=== PATIENT | male | born 1965 | race Caucasian/White ===

== ENCOUNTER → 2018-03-24 13:19 | Outpatient (CLI) | payer OTHER, SELFPAY ==
[2018-03-24 14:09] LABS: Add Manual Diff / Slide Review NO; Basophils Percent Auto 0.3 % (0-2); Eosinophils Percent Auto 2.1 % (2-4); Hematocrit 45.5 % (41-53); Lymphocytes Percent Auto 48.5 % (25-40); Mean Corpuscular HGB Conc 35.2 % (30-36); Mean Corpuscular Hemoglobin 31.6 PG (26-34); Mean Corpuscular Volume 89.8 fL (80-100); Monocytes Percent Auto 5.7 % (3-14); Neutrophils Absolute Auto 1700 /uL (3000-5900); Neutrophils Percent Auto 43.4 % (50-75); Platelet Count 157 X10^3/uL (150-400); Red Blood Cell Count 5.07 X10^6/uL (4.5-5.9); Red Cell Distribution Width 12.5 % (11.6-14.8)
[2018-03-24 14:28] LABS: Alanine Aminotransferase 73 IU/L (21-72); Albumin 4.6 g/dL (3.5-5.0); Albumin Globulin Ratio 1.6 (1.0-2.8); Alkaline Phosphatase 43 U/L (38-126); Aspartate Aminotransferase 28 IU/L (17-59); BUN Creatinine Ratio 28.9 (6-22); Bilirubin Total 0.9 mg/dL (0.2-1.3); Blood Urea Nitrogen 26 mg/dL (9-20); Calcium 9.5 mg/dL (8.4-10.2); Carbon Dioxide 26 mmol/L (22-32); Chloride 102 mmol/L (98-107); Cholesterol 215 mg/dL (140-199); Estimated Glomerular Filt Rate > 60.0 mL/min (>60); Globulin 2.8 g/dL (1.7-4.1); Glucose 87 mg/dL (70-100); HDL Cholesterol 46 mg/dL (40-60); HEMOLYSIS < 15 (0-50); LDL Cholesterol Calculated 148 mg/dL (<100); Potassium 3.8 mmol/L (3.4-5.1); Sodium 140 mmol/L (137-145); Total Protein 7.4 g/dL (6.3-8.2); Triglycerides 107 mg/dL (35-150)
[2018-03-24 14:55] LABS: Prostate Specific Antigen Scrn 0.469 ng/mL (0.1-4.0)
[2018-03-24 14:56] LABS: TSH w/ Reflex to FT4 1.76 uIU/mL (0.47-4.68)
== END ==
PROVIDERS: PCP Family Medicine; Visit Provider Family Medicine
DX: Z00.00 Encounter for general adult medical examination without abnormal findings (principal); Z12.5 Encounter for screening for malignant neoplasm of prostate
CPT/HCPCS: 36415; 80053; 80061; 84443; 85025; G0103

== ENCOUNTER → 2019-09-21 06:51 | Outpatient (CLI) | payer OTHER, SELFPAY ==
[2019-09-21 08:27] LABS: Add Manual Diff / Slide Review NO; Basophils Absolute Auto 0 /uL (0-100); Basophils Percent Auto 0.4 % (0-2); Eosinophils Absolute Auto 100 /uL (0-450); Eosinophils Percent Auto 1.7 % (2-4); Hematocrit 48.4 % (41-53); Hemoglobin 16.6 g/dL (13.5-17.5); Lymphocytes Absolute Auto 1600 /uL (1100-4500); Lymphocytes Percent Auto 32.4 % (25-40); Mean Corpuscular HGB Conc 34.4 % (30-36); Mean Corpuscular Hemoglobin 31.1 PG (26-34); Mean Corpuscular Volume 90.3 fL (80-100); Monocytes Absolute Auto 400 /uL (0-900); Neutrophils Absolute Auto 2900 /uL (1500-7000); Neutrophils Percent Auto 58.5 % (50-75); Platelet Count 170 X10^3/uL (150-400); Red Blood Cell Count 5.35 X10^6/uL (4.5-5.9); Red Cell Distribution Width 12.3 % (11.6-14.8)
[2019-09-21 09:13] LABS: Alanine Aminotransferase 63 IU/L (<50); Albumin 4.6 g/dL (3.5-5.0); Albumin Globulin Ratio 1.5 (1.0-2.8); Alkaline Phosphatase 49 U/L (38-126); Aspartate Aminotransferase 27 IU/L (17-59); Bilirubin Total 0.8 mg/dL (0.2-1.3); Blood Urea Nitrogen 31 mg/dL (9-20); Calcium 9.7 mg/dL (8.4-10.2); Carbon Dioxide 26 mmol/L (22-32); Chloride 107 mmol/L (98-107); Cholesterol 224 mg/dL (140-199); Estimated Glomerular Filt Rate > 60.0 mL/min (>60); Globulin 3.1 g/dL (1.7-4.1); Glucose 111 mg/dL (70-100); HDL Cholesterol 34 mg/dL (40-60); HEMOLYSIS < 15 (0-50); LDL Cholesterol Calculated 170 mg/dL (<100); Potassium 3.6 mmol/L (3.4-5.1); Sodium 142 mmol/L (137-145); Total Protein 7.7 g/dL (6.3-8.2); Triglycerides 102 mg/dL (35-150)
[2019-09-21 09:43] LABS: Prostate Specific Antigen Scrn 0.499 ng/mL (0.1-4.0)
[2019-09-21 09:45] LABS: TSH w/ Reflex to FT4 2.52 uIU/mL (0.47-4.68)
== END ==
PROVIDERS: PCP Family Medicine; Visit Provider Family Medicine
DX: Z00.00 Encounter for general adult medical examination without abnormal findings (principal); Z12.5 Encounter for screening for malignant neoplasm of prostate; Z13.220 Encounter for screening for lipoid disorders; Z13.29 Encounter for screening for other suspected endocrine disorder; Z13.6 Encounter for screening for cardiovascular disorders; N52.9 Male erectile dysfunction, unspecified; R53.83 Other fatigue
CPT/HCPCS: 36415; 80053; 80061; 84403; 84443; 85025; G0103

== ENCOUNTER → 2020-12-26 08:13 | Outpatient (CLI) | payer OTHER, SELFPAY ==
[2020-12-26] MEDS: COVID-19 VACC, Ad26(JANSSEN)/PF 0.5 ML IM (08:25)
== END ==
PROVIDERS: PCP Family Medicine; Visit Provider Internal Medicine
DX: Z23 Encounter for immunization (principal)
CPT/HCPCS: 0031A; 91303

== ENCOUNTER → 2021-08-20 07:02 | Outpatient (CLI) | payer OTHER, SELFPAY ==
[2021-08-20 08:50] LABS: Add Manual Diff / Slide Review NO; Basophils Absolute Auto 0 /uL (0-100); Basophils Percent Auto 0.6 % (0-2); Eosinophils Absolute Auto 100 /uL (0-450); Hemoglobin 15.9 g/dL (13.5-17.5); Lymphocytes Absolute Auto 1700 /uL (1100-4500); Lymphocytes Percent Auto 43.1 % (25-40); Mean Corpuscular HGB Conc 34.6 % (30-36); Mean Corpuscular Hemoglobin 31.1 PG (26-34); Mean Corpuscular Volume 90.1 fL (80-100); Monocytes Absolute Auto 300 /uL (0-900); Monocytes Percent Auto 6.9 % (3-14); Neutrophils Absolute Auto 1800 /uL (1500-7000); Neutrophils Percent Auto 47.4 % (50-75); Platelet Count 141 X10^3/uL (150-400); Red Cell Distribution Width 12.3 % (11.6-14.8); White Blood Cell Count 3.9 X10^3/uL (4.5-11.0)
[2021-08-20 09:26] LABS: HEMOLYSIS < 15 (0-50); Potassium 3.7 mmol/L (3.4-5.1)
[2021-08-20 09:27] LABS: Alanine Aminotransferase 107 IU/L (<50); Albumin 4.4 g/dL (3.5-5.0); Albumin Globulin Ratio 1.5 (1.0-2.8); Alkaline Phosphatase 44 U/L (38-126); Aspartate Aminotransferase 39 IU/L (17-59); BUN Creatinine Ratio 27.1 (6-22); Bilirubin Total 0.5 mg/dL (0.2-1.3); Blood Urea Nitrogen 26 mg/dL (9-20); Calcium 9.2 mg/dL (8.4-10.2); Carbon Dioxide 28 mmol/L (22-32); Chloride 104 mmol/L (98-107); Cholesterol 212 mg/dL (140-199); Estimated Glomerular Filt Rate > 60.0 mL/min (>60); Globulin 2.9 g/dL (1.7-4.1); Glucose 100 mg/dL (70-100); HDL Cholesterol 35 mg/dL (40-60); LDL Cholesterol Calculated 155 mg/dL (<100); Sodium 141 mmol/L (137-145); Total Protein 7.3 g/dL (6.3-8.2); Triglycerides 108 mg/dL (35-150)
[2021-08-20 09:52] LABS: Prostate Specific Antigen Scrn 0.559 ng/mL (0.1-4.0)
== END ==
PROVIDERS: PCP Family Medicine; Referring Provider Family Medicine; Visit Provider Family Medicine
DX: Z00.00 Encounter for general adult medical examination without abnormal findings (principal); E78.5 Hyperlipidemia, unspecified; Z12.5 Encounter for screening for malignant neoplasm of prostate
CPT/HCPCS: 36415; 80053; 80061; 85025; G0103

== ENCOUNTER → 2021-11-21 16:40 | Outpatient (CLI) | payer OTHER, SELFPAY ==
--- NOTE | 2021-11-21 | DI.RAD.S_ITS ---
PROCEDURE: XR CHEST 2V INDICATIONS: COVID/COUGHING TECHNIQUE: 2 views of the chest were acquired. COMPARISON: [facility], , CHEST 1 VIEW, 11/13/2015, 13:38. FINDINGS: Surgical changes and devices: None. Lungs and pleura: No consolidation, pleural effusions or pneumothorax. Mediastinum: Mediastinal contours are normal. Heart size is normal. Bones and chest wall: No suspicious bony abnormalities. Soft tissues appear unremarkable. IMPRESSION: No acute cardiopulmonary abnormality. Dictated by: Mehrdad Bailey M.D. on 11/21/2021 at 16:54 Approved by: Mehrdad Bailey M.D. on 11/21/2021 at 16:55
== END ==
PROVIDERS: PCP Family Medicine; Referring Provider Family Medicine; Visit Provider Family Medicine
DX: U07.1 COVID-19 (principal)
CPT/HCPCS: 71046

== ENCOUNTER 2022-05-12 07:56 | Emergency (ER) | payer OTHER, SELFPAY ==
[2022-05-12 08:01] VITALS: BP 125/79; PULSE 73; RESP 16; TEMP 36.4; O2SAT 96; BMI 33.0
[2022-05-12] MEDS: methylPREDNISolone 125 MG/2 ML VIAL IV (08:12)
[2022-05-12] MEDS: FAMOTIDINE 20 MG/2 ML VIAL IV (08:12)
--- NOTE | 2022-05-12 08:22 | ED_ITS ---
HPI - Allergic Reaction General Chief complaint: Allergic Reaction Stated complaint: stung by bee/reaction Time Seen by Provider: 05/12/22 08:01 History of Present Illness HPI narrative: Patient is a 56-year-old male history of hypertension with bee sting. 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 He got stung in the back the head approximately 30 minutes ago and broke out into hives. He has lip tingling an all over itching and hives he took 50 mg of Benadryl prior to arrival. He denies any difficulty swallowing or breathing. He says tongue may feel slightly enlarged. He speaking without any difficulty. Related Data Previous Rx's Medication Instructions Recorded epinephrine 0.3 mg/0.3 mL 0.3 mg (0.3 mL) IM SEE 09/04/21 injection, auto-injector (EpiPen INSTRUCTIONS ##1 2-Eric) sildenafil 25 mg tablet 25 mg PO DAILY PRN sexual activity 09/23/21 #30 tabs benzonatate 200 mg capsule 200 mg PO TID PRN cough #30 caps 11/22/21 hydrochlorothiazide 25 mg tablet 25 mg PO DAILY #90 tabs 01/20/22 olmesartan 20 mg tablet 20 mg PO DAILY #90 tabs 01/20/22 epinephrine 0.3 mg/0.3 mL 0.3 mg (0.3 mL) IM Q5-15M PRN 05/12/22 injection, auto-injector anaphylaxis #2 ea Allergies Allergy/AdvReac Type Severity Reaction Status Date / Time BEE,HONEY Allergy Severe Anaphylaxis Uncoded 05/12/22 08:06 Review of Systems Review of Systems Narrative: GENERAL: Denies chills, fatigue, malaise, fever, sweats, travel HEENT: Denies sinus pain, ear pain, sore throat, difficulty swallowing, neck pain RESPIRATORY: See HPI CARDIOVASCULAR: Denies chest pain, palpitations, orthopnea, edema GASTROINTESTINAL: Denies nausea, vomiting, abdominal pain, diarrhea, constipation, melena. : Denies dysuria, frequency, incontinence, hematuria, urinary retention, flank pain. MUSCULOSKELETAL: Denies weakness, joint pain, or bony pain SKIN: N hives, see HPI NEUROLOGIC: Denies weakness, dizziness, headache, numbness, change in speech, confusion PSYCHIATRIC: No concerning psychosocial issues. 12 point review of systems is negative except for those stated above and HPI Patient History Medical History (Updated 05/12/22 @ 09:24 by Patricia Sanchez DO) Hayfever Herpes Migraines Sleep apnea Surgical History Status post tonsillectomy and adenoidectomy Family History Father Heart disease Grandfather No problems noted. Grandmother No problems noted. Mother No problems noted. Sister No problems noted. Sister No problems noted. Social History marital status: Smoking Status: Never smoker alcohol intake: current (1-3 A WEEK ) substance use type: does not use Smoking Status: Never smoker alcohol intake frequency: 3 or more drinks per day Substance Use Type: does not use Exam Initial Vital Signs Initial Vital Signs: Vital Signs Temperature 97.6 F 05/12/22 08:01 Pulse Rate 73 05/12/22 08:01 Respiratory Rate 16 05/12/22 08:01 Blood Pressure 125/79 05/12/22 08:01 Pulse Oximetry 96 05/12/22 08:01 Oxygen Delivery Method 05/12/22 08:01 GENERAL: Alert pleasant 56-year-old male HEENT: Head atraumatic,EOMI, pupils reactive, face symmetric, no significant edema noted of tongue lips no hoarseness of voice managing secretions CARDIOVASCULAR: Regular rate and rhythm without murmurs, rubs or gallops. RESPIRATORY: Breath sounds equal bilaterally, no wheezes rales or rhonchi. ABDOMEN: Soft, nontender. Normoactive bowel sounds all 4 quadrants. No guardi ng or rebound. EXTREMITIES: Normal range of motion, no clubbing or edema. Neurovascularly intact NEUROLOGICAL: Alert and oriented x4. SKIN: Diffuse hives all over specifically more on abdomen Course Orders Ordered: Discontinued Medications Famotidine (Famotidine 20 Mg/2 Ml Vial) 20 mg IV NOW CASA Last Admin: 05/12/22 08:12 Dose: 20 mg Documented By: JAMIE Methylprednisolone (Methylprednisolone 125 Mg/2 Ml Vial) 125 mg IV NOW ONE Stop: 05/12/22 08:07 Last Admin: 05/12/22 08:12 Dose: 125 mg Documented By: [facility] Vital Signs Vital signs: Vital Signs - 8 hr 05/12/22 08:01 05/12/22 08:27 05/12/22 08:30 Temperature 97.6 F Pulse Rate 73 64 Respiratory Rate 16 Blood Pressure 125/79 129/67 Pulse Oximetry 96 95 Oxygen Delivery Method Room Air 05/12/22 08:30 05/12/22 09:00 05/12/22 09:00 Temperature Pulse Rate 65 63 Respiratory Rate Blood Pressure 127/79 Pulse Oximetry 97 95 Oxygen Delivery Method 05/12/22 09:30 05/12/22 09:30 Temperature Pulse Rate 69 Respiratory Rate Blood Pressure 147/89 H Pulse Oximetry 97 Oxygen Delivery Method MDM - Allergic Reaction MDM Narrative Medical decision making narrative: Patient has sign of allergic reaction but not anaphylaxis at this time. He took Benadryl previously. Will give him Solu-Medrol Pepcid and monitor. If worsen then epinephrine. Patient's symptoms completely resolved within an hour and. No difficulty breathing no need for epinephrine at this time. Does not have anaphylaxis does have severe hives. Discharge Plan Departure Patient Disposition: Home Clinical Impression: Allergic reaction Instructions: DI for Anaphylaxis, DI for Hives Activity Restrictions/Additional Instructions: *You have been diagnosed with allergic reaction to bees *What to do: At this time continue to monitor Thursday or feeling well. Continue to Carrier epinephrine pen with you use it if you should ever feel tongue or lip swelling or difficulty breathing *Continue to take medications as directed Benadryl 25-50 mg every 6 hours if needed for itching Pepcid 20 mg once daily continuing to have hives *Follow up with your primary care provider in 2-3 days or call [phone] *Return to ER if you should have increased difficulty breathing, worsening high or any new, worsening or concerning symptoms Prescriptions: New epinephrine 0.3 mg/0.3 mL auto-injector 0.3 mg IM Q5-15M PRN (Reason: anaphylaxis) Qty: 2 0RF Rx Instructions: do not exceed 3 doses per episode No Action sildenafil 25 mg tablet 25 mg PO DAILY PRN (Reason: sexual activity) Qty: 30 11RF Rx Instructions: administer 30 minutes to 4 hours before activity. Up to three tabs daily epinephrine [EpiPen 2-Eric] 0.3 mg/0.3 mL auto-injector 0.3 mg IM SEE INSTRUCTIONS Qty: 1 1RF benzonatate 200 mg capsule 200 mg PO TID PRN (Reason: cough) Qty: 30 1RF hydrochlorothiazide 25 mg tablet 25 mg PO DAILY Qty: 90 3RF olmesartan 20 mg tablet 20 mg PO DAILY Qty: 90 3RF Referrals: Henrique Mathias MD [Primary Care Provider] - Visit Report Forms: Patient Portal/API
[2022-05-12 08:27] VITALS: PULSE 64; O2SAT 95
[2022-05-12 08:30] VITALS: BP 129/67; PULSE 65; O2SAT 97
[2022-05-12 09:00] VITALS: BP 127/79; PULSE 63; O2SAT 95
[2022-05-12 09:30] VITALS: BP 147/89; PULSE 69; O2SAT 97
== END 2022-05-12 09:50 | disposition home or self-care (01) ==
PROVIDERS: Emergency Provider Emergency Medicine; PCP Family Medicine
DX: T63.441A Toxic effect of venom of bees, accidental (unintentional), initial encounter (principal)
CPT/HCPCS: 96374; 96375; 99283; 99284; J2930

== ENCOUNTER 2022-11-20 06:44 | Day surgery (SDC) | payer OTHER, SELFPAY ==
--- NOTE | 2022-11-20 | PATH_ITS ---
[facility] Accession Number: [id number] No. of containers..02 Tissue . 01 Material submitted: . PART A: colon - RIGHT COLON ULCER PART B: colon - TRANSVERSE POLYP . 01 Diagnosis: A. Right Colon, Ulcer, Biopsy: Colonic mucosa with ischemia-type changes. Please see comment. Negative for granulomas, dysplasia, and malignancy. . B. Transverse Colon, Polyp, Biopsy: Tubular adenoma, two fragments. MRV 11/26/2022 1411 Local . 01 Comment: A. The differential diagnosis includes ischemia due to trauma/prolapse, true vascular ischemia, and ischemia due to infection (i.e., enterohemorrhagic E. coli, C. difficile, etc.). . 01 Electronically signed: . Krys Maxwell MD, Pathologist NPI- [id number] . 01 Gross description: . Part A: RIGHT COLON ULCER: Received in formalin is 1 fragment(s) of walls, soft tissue measuring 0.3 x 0.2 x 0.1 cm submitted entirely in 1 cassette(s) Part B: TRANSVERSE POLYP: Received in formalin are 2 fragment(s) of walls, soft tissue measuring 0.5 x 0.2 x 0.1 cm to 0.2 x 0.2 x 0.1 cm submitted entirely in 1 cassette(s) /CPE 11/21/2022 0902 Local . 01 Pathologist provided ICD-10: D12.3 . 01 CPT . 414390, [id number] Specimen Comment: A courtesy copy of this report has been sent to [phone] Performed at: 01 [facility] [address] [place] [address] [address], [place], [place] [id number] MD Sammy Sparrow MD Phone: [phone]
[2022-11-20 07:21] VITALS: BP 127/83; PULSE 72; RESP 18; TEMP 36.2; O2SAT 95; BMI 33.0
[2022-11-20] MEDS: LACTATED RINGERS 1,000 ML 84 ML IV (07:39)
--- NOTE | 2022-11-20 07:40 | PM.HP.1 ---
History of Present Illness History of Present Illness Date Patient Seen: 11/20/22 Time Patient Seen: 07:40 Chief complaint: SCREENING COLONOSCOPY Narrative: Devonte is a 57-year-old man who is here for colonoscopy. He had 1 about 7 years ago with polyps removed. No known family history of colon cancer. Patient History Medical History (Updated 11/20/22 @ 07:40 by Vinicius Lei MD) Hayfever Herpes Migraines Sleep apnea Surgical History Status post tonsillectomy and adenoidectomy Family & Social History Family History Father Heart disease Grandfather No problems noted. Grandmother No problems noted. Mother No problems noted. Sister No problems noted. Sister No problems noted. Social History: household members spouse Tobacco & Substance use: Smoking Status Never smoker alcohol intake current alcohol intake frequency a few times a week Substance Use Type does not use Meds Home Medications and Allergies Home Medications Medication Instructions Recorded Confirmed Type olmesartan 20 mg tablet 20 mg PO DAILY #90 tabs 01/20/22 11/20/22 Rx epinephrine 0.3 mg/0.3 mL 0.3 mg (0.3 mL) IM Q5-15M PRN 05/12/22 11/20/22 Rx injection, auto-injector anaphylaxis #2 ea sildenafil 25 mg tablet 25 mg PO DAILY PRN sexual activity 06/16/22 11/20/22 Rx #30 tabs sodium sul 1.479 gram-potas ch See Rx Instructions PO PER PKG DIR 11/07/22 11/20/22 Rx 0.188 gram-magnes sul 0.225 gram #24 tabs tablet (Sutab) hydrochlorothiazide 25 mg tablet 25 mg PO 3XD 11/20/22 11/20/22 History Allergies Allergy/AdvReac Type Severity Reaction Status Date / Time bee venom protein (honey bee) Allergy Intermediate Anaphylaxis Verified 11/20/22 07:30 Exam Vital Signs (past 8 hours): - 11/20/22 07:21 11/20/22 07:21 Temperature 97.1 F L Pulse Rate 72 Respiratory Rate 18 Blood Pressure 127/83 Pulse Oximetry 95 Oxygen Delivery Method Room Air Room Air Oxygen Delivery Method Room Air Const General: healthy appearing Resp Effort & Inspection: normal respiratory effort Assessment & Plan Assessment and plan (1) History of colon polyps: Status: Acute Plan We reviewed the risks and benefits of colonoscopy for colon cancer screening and personal history of polyps and he would like to proceed. Time Spent With Patient Critical Care time: I spent a total of [] minutes of critical care time on this patient's care today; this time is exclusive of procedural time.
[2022-11-20 08:12] VITALS: BP 98/73; PULSE 72; RESP 14; TEMP 36.3; O2SAT 95
--- NOTE | 2022-11-20 08:15 | PM.OP.COLON ---
Operative Date/Time/Diagnoses Date of procedure: 11/20/22 Time of procedure: 08:15 Pre-op diagnosis: Colon cancer screening Post-op diagnosis: same Procedure & Clinicians Study performed: Colonoscopy Same procedure as scheduled: Yes Surgeon: Vinicius Lei Procedure Notes Procedure in detail: Surgeon: Vinicius Lei MD Anesthesia: Dr. Calvert Procedure: The patient was brought to the endoscopy suite, placed in left lateral decubitus position. The patient was connected to monitoring devices. A time-out was performed. Sedation was administered. Once the patient was adequately sedated, a digital rectal exam was performed and was normal. The scope was then inserted and advanced to the cecum where the appendiceal orifice was identified and photographed. The scope was then slowly withdrawn over greater than 6 minutes. The mucosa was thoroughly inspected. There was a very small shallow ulcer in the right colon and a biopsy was taken with the Jumbo forceps. There was a 5 mm polyp in the transverse colon which was removed with Jumbo forceps. The rest of the colon was normal. The scope was retroflexed in the rectum. There was a hypertrophied anal papilla. The scope was straightened and removed. The patient was awakened and brought to recovery. Scope withdrawal time: 12 minutes Sedation time: 20 minutes EBL: 2 mL Findings: Small shallow ulcer in the right colon and 5 mm polyp in the transverse colon Post-procedure Disposition: PACU
[2022-11-20 08:17] VITALS: BP 102/75; PULSE 75; RESP 16; O2SAT 95
[2022-11-20 08:22] VITALS: BP 109/71; PULSE 76; RESP 17; O2SAT 95
[2022-11-20 08:28] VITALS: BP 112/85; PULSE 67; RESP 16; O2SAT 100
--- NOTE | 2022-11-20 08:32 | SUR.PHASEI ---
0830: Pt A&Ox4, denies any distress, VSS, abd soft and ready to transfer to phase 2. Report given to MARY JO Gray with time allowed for questions. Will transfer care now.
== END 2022-11-20 08:44 | disposition home or self-care (01) ==
PROVIDERS: PCP Family Medicine; Referring Provider Surgery; Visit Provider Surgery
PROC: 0DJD8ZZ Inspection of Lower Intestinal Tract, Via Natural or Artificial Opening Endoscopic (ICD-10-PCS; CPT 45378; principal; 2022-11-20 07:45)
DX: Z12.11 Encounter for screening for malignant neoplasm of colon (principal); Z86.010 Personal history of colon polyps; K64.4 Residual hemorrhoidal skin tags; K63.3 Ulcer of intestine; D12.3 Benign neoplasm of transverse colon
CPT/HCPCS: 45380; J2704; J3010

== ENCOUNTER → 2023-06-05 12:52 | Outpatient (CLI) | payer OTHER, SELFPAY ==
[2023-06-05 13:13] LABS: Add Manual Diff / Slide Review NO; Basophils Absolute Auto 0 /uL (0-100); Basophils Percent Auto 0.4 % (0-2); Eosinophils Absolute Auto 100 /uL (0-450); Eosinophils Percent Auto 1.2 % (2-4); Hematocrit 50.1 % (41-53); Hemoglobin 17.4 g/dL (13.5-17.5); Lymphocytes Absolute Auto 1600 /uL (1100-4500); Lymphocytes Percent Auto 26.8 % (25-40); Mean Corpuscular HGB Conc 34.7 % (30-36); Mean Corpuscular Hemoglobin 31.6 PG (26-34); Mean Corpuscular Volume 90.9 fL (80-100); Monocytes Absolute Auto 300 /uL (0-900); Monocytes Percent Auto 5.6 % (3-14); Neutrophils Absolute Auto 4000 /uL (1500-7000); Platelet Count 151 X10^3/uL (150-400); Red Blood Cell Count 5.51 X10^6/uL (4.5-5.9); Red Cell Distribution Width 13.5 % (11.6-14.8); White Blood Cell Count 6.1 X10^3/uL (4.5-11.0)
[2023-06-05 13:35] LABS: Alanine Aminotransferase 36 IU/L (<50); Albumin 4.3 g/dL (3.5-5.0); Albumin Globulin Ratio 1.5 (1.0-2.8); Alkaline Phosphatase 37 U/L (38-126); Aspartate Aminotransferase 24 IU/L (17-59); Blood Urea Nitrogen 19 mg/dL (9-20); Calcium 9.3 mg/dL (8.4-10.2); Carbon Dioxide 26 mmol/L (22-32); Chloride 104 mmol/L (98-107); Cholesterol 188 mg/dL (140-199); Estimated Glomerular Filt Rate > 60 mL/min (>60); Globulin 2.8 g/dL (1.7-4.1); Glucose 88 mg/dL (70-100); HDL Cholesterol 43 mg/dL (40-60); HEMOLYSIS < 15 (0-50); LDL Cholesterol Calculated 134 mg/dL (<100); Potassium 3.8 mmol/L (3.4-5.1); Sodium 137 mmol/L (137-145); Total Protein 7.1 g/dL (6.3-8.2); Triglycerides 57 mg/dL (35-150)
[2023-06-05 13:59] LABS: TSH w/ Reflex to FT4 1.75 uIU/mL (0.47-4.68)
[2023-06-05 14:00] LABS: Prostate Specific Antigen Scrn 0.925 ng/mL (0.1-4.0)
== END ==
PROVIDERS: PCP Family Medicine; Referring Provider Family Medicine; Visit Provider Family Medicine
DX: E78.5 Hyperlipidemia, unspecified (principal); Z12.5 Encounter for screening for malignant neoplasm of prostate
CPT/HCPCS: 36415; 80053; 80061; 84443; 85025; G0103

== ENCOUNTER → 2024-09-05 09:45 | Outpatient (CLI) | payer OTHER, SELFPAY ==
--- NOTE | 2024-09-05 | DI.RAD.S_ITS ---
PROCEDURE: XR KNEE RT 3V INDICATIONS: RT KNEE PAIN TECHNIQUE: 3 views of the knee were acquired. COMPARISON: None. FINDINGS: Bones: No fractures or dislocations. Mild degenerative changes. No suspicious bony lesions. Soft tissues: Trace joint effusion. No suspicious soft tissue calcifications. IMPRESSION: Mild degenerative changes. Dictated by: Papito Corbett M.D. on 09/05/2024 at 18:29 Approved by: Papito Corbett M.D. on 09/05/2024 at 18:30
== END ==
PROVIDERS: PCP Family Medicine; Referring Provider Family Medicine; Visit Provider Family Medicine
DX: M25.561 Pain in right knee (principal)
CPT/HCPCS: 73562

== ENCOUNTER → 2024-11-14 16:21 | Outpatient (CLI) | payer OTHER, SELFPAY ==
--- NOTE | 2024-11-14 16:25 | DI.RAD.S_ITS ---
PROCEDURE: XR LUMBAR SPINE 2-3V INDICATIONS: BACK PAIN TECHNIQUE: 3 views of the lumbar spine were acquired. COMPARISON: None. FINDINGS: Bones: 5 [id number] vertebrae are present. Grade 1 retrolisthesis of L3 on L4 and L2 on L3. No vertebral body compression fractures. No suspicious bony lesions. Moderate disc height loss at L1-2 and L5-S1. Mild disc height loss at remaining levels. Facet arthrosis of L3 through S1. Soft tissues: Overlying bowel gas pattern is normal. No suspicious soft tissue calcifications. IMPRESSION: Mild to moderate, multilevel degenerative disc disease and lower lumbar facet arthrosis. Dictated by: Marco Franz M.D. on 11/15/2024 at 11:48 Approved by: Marco Franz M.D. on 11/15/2024 at 11:48
== END ==
LOC: RAD 16:23
PROVIDERS: PCP Family Medicine; Referring Provider Chiropractor; Visit Provider Chiropractor
DX: M47.816 Spondylosis without myelopathy or radiculopathy, lumbar region (principal); M47.817 Spondylosis without myelopathy or radiculopathy, lumbosacral region; M51.360 Other intervertebral disc degeneration, lumbar region with discogenic back pain only; M51.370 Other intervertebral disc degeneration, lumbosacral region with discogenic back pain only
CPT/HCPCS: 72100

== ENCOUNTER → 2025-08-19 07:06 | Outpatient (CLI) | payer OTHER, SELFPAY ==
--- NOTE | 2025-08-19 07:10 | DI.MRI.S_ITS ---
PROCEDURE: MR LUMBAR SPINE WO CON INDICATIONS: lumbar spine pain TECHNIQUE: Noncontrast sagittal T1 spin echo and T2 fast echo, sagittal STIR, and T2 fast spin echo through the lumbar spine. In cases with scoliosis, additional coronal T2 fast spin echo may be performed. COMPARISON: [facility], CR, XR LUMBAR SPINE WITH FLEXION EXTENSION 5 VIEWS, 04/25/2025, 9:53. FINDINGS: Image quality: Excellent. Alignment and Curvature: Grade 1, 2 mm, retrolisthesis of L5 on S1. Otherwise maintained lumbar lordosis. Bone Marrow: Marrow is of normal overall signal. No acute vertebral body compression fractures. Spinal Cord: Conus medullaris terminates at the L1 level. Visualized cord demonstrates normal signal and size. Paraspinous Soft Tissues: No paravertebral masses. T12-L1: No spinal canal or neural foraminal stenosis. L1-L2: No spinal canal or neural foraminal stenosis. L2-L3: Mildly degenerated disc. No spinal canal or neural foraminal stenosis. L3-L4: No spinal canal or neural foraminal stenosis. L4-L5: Mild bilateral neural foraminal stenosis due to facet arthrosis. No spinal canal stenosis. L5-S1: Degenerated disc with central annular fissure. No disc herniation or protrusion. No neural foraminal stenosis. No spinal canal stenosis. IMPRESSION: Mild bilateral neural foraminal stenosis at L4-5. Degenerated disc at L5-S1 with central annular fissure. No extrusion or herniation. Mild, grade 1 retrolisthesis of L5 on S1. Dictated by: Nolan Chirinos M.D. on 08/21/2025 at 9:30 Approved by: Nolan Chirinos M.D. on 08/21/2025 at 13:00
== END ==
LOC: MRI 07:07
PROVIDERS: PCP Family Medicine; Referring Provider Physician Assistant; Visit Provider Physician Assistant
DX: M47.816 Spondylosis without myelopathy or radiculopathy, lumbar region (principal); M48.061 Spinal stenosis, lumbar region without neurogenic claudication; M51.379 Other intervertebral disc degeneration, lumbosacral region without mention of lumbar back pain or lower extremity pain; M43.17 Spondylolisthesis, lumbosacral region; S39.012D Strain of muscle, fascia and tendon of lower back, subsequent encounter; S83.231D Complex tear of medial meniscus, current injury, right knee, subsequent encounter
CPT/HCPCS: 72148